=== PATIENT | female | born 1955 | race Two or more races ===

== ENCOUNTER → 2018-11-21 | Outpatient (CLI) | payer OTHER ==
[~2018-11-21] MED LIST: AMLO-145 PO; ATOR40TA21 PO; CYCL10TA7 PO; GABA400C14 PO; HYDR12.58 PO; INSU100V18 SC; INSU100V19 SC; LEVO125T7 PO; LOSA100T3 PO; METF500T PO; OMEP20CA16 PO; SITA100T11 PO
--- NOTE | 2018-11-21 13:45 | CONS ---
Assessment/Plan Assessment/Plan Hospital Course (Demo Recall) 63-year-old female with multiple medical problems including insulin-dependent diabetes presents with bilateral knee pain and lumbar radiculopathy. She has fairly severe osteoarthritis of bilateral knees slightly worse on the right than the left. She has a varus deformity. Her clinical picture is complicated by her severe lumbar radiculopathy as well as possible symptoms of neurogenic claudication or vascular claudication. She does describe heaviness and feeling of her legs being cold and painful when she stands and walks for short periods of time. It is unclear at this time how much pain is secondary to the osteoarthritis versus other etiologies. At this time the patient would benefit from a steroid injection which will be used for both diagnostic and therapeutic purposes. Only one knee injection will be given at a time secondary to insulin-dependent diabetes. She will return to clinic for her second injection once her serum glucose returns to her baseline. Plan: Obtain authorization for bilateral knee steroid injections. Follow-up after authorization obtained Consultation Date/Type/Reason Admit Date/Time Date of Consultation: Nov 21, 2018 Reason for Consultation Bilateral knee pain Date/Time of Note DATE: 11/21/18 TIME: 13:19 Hx of Present Illness Is a 63-year-old female with a chief complaint of right and left knee pain. The pain is equal in both knees. The pain began many years ago. No specific injury. The pain has just continued to increase over the years. The patient's pain is in the medial and lateral aspect of the right and left knee. She does have pain radiating from her back down to her feet bilaterally. When she stands or walks for a few minutes her legs feel very heavy, cold, and painful. The knees are always painful even when not weightbearing. The knee pain does wake her up at night. She does have history of back problems. She does have numbness and tingling worse on the right than the left at times. The pain is rated as a 78/10 and is described as throbbing and burning. She has had epidural spine in jections as well as knee steroid injections in the past. The knee steroid injections were at least 1-2 years ago. They did help somewhat. ----- Duration: Years Injury: No Walking tolerance: 1 block Limp: Yes Support: Walker Swelling: Yes Crepitation: Yes Instability: Yes Stairs: Cannot use Physical Therapy: Yes Injections: Knee steroid injections 2 years ago NSAID's: No Prior surgery: No Back pain: Yes Hip pain: No Risk of AVN : no Patient denies fever, chills, shortness of breath, chest pain, nausea/vomiting, constipation, diarrhea, Past Medical History Insulin-dependent diabetes Depression Chronic back pain, with lumbar radiculopathy breast cancer Obstructive sleep apnea Hyperlipidemia Hypothyroidism Osteoarthritis Home Meds Reported Medications Hydrochlorothiazide* (Hydrochlorothiazide*) 12.5 Mg Tablet, 12.5 MG PO DAILY, #30 TAB 12/15/15 Cyclobenzaprine Hcl* (Cyclobenzaprine Hcl*) 10 Mg Tablet, 10 MG PO HS, #90 TAB 12/15/15 Levothyroxine Sodium* (Levothyroxine Sodium*) 125 Mcg Tablet, 125 MCG PO BEFORE BREAKFAST, #30 TAB 12/15/15 Metformin Hcl (Glucophage) 500 Mg Tablet, 500 MG PO DAILY, #30 TAB 12/15/15 Gabapentin* (Gabapentin*) 400 Mg Capsule, 400 MG PO TID, #90 CAP 12/15/15 Sitagliptin* (Januvia*) 100 Mg Tablet, 100 MG PO DAILY, TAB 02/10/14 Insulin Lispro (Humalog) 100 U/Ml Vial, SC TID 12/17/11 Insulin Glargine,Hum.rec.anlog (Lantus) 100 U/Ml Vial, SC BID 12/17/11 Losartan Potassium* (Cozaar*) 100 Mg Tablet, PO DAILY 12/17/11 Atorvastatin (Lipitor) 40 Mg Tablet, PO DAILY 12/17/11 Amlodipine Besylate* (Amlodipine Besylate*) 5 Mg Tablet, PO DAILY 12/17/11 Omeprazole* (Omeprazole*) 20 Mg Capsule.dr, PO DAILY 12/17/11 Allergies: Uncoded Allergies: PCN (Adverse Reaction, Intermediate, RASH, 12/15/15) Past Surgical History Past Surgical Hx: noncontributory Family History Significant Family History: no pertinent family hx Social History Alcohol Use: other Smoking Status: Unknown if ever smoked Drug Use: none Exam/Review of Systems Exam Vitals Weight: 210 pounds Height: 5 foot 4 inches BMI: 36.0 Temperature: 90.4 Heart Rate: 78 Blood Pressure: 166/79 Respiratory Rate: 16 Exam General: Awake, alert, in no acute distress, pleasant and cooperative Heart: regular rhythm Lungs: breathing comfortably, no tachypnea or dyspnea MUSCULOSKELETAL: Right and Left Knee This is a well developed obese female who is alert, oriented times three and in no apparent distress. Skin is intact over the right and left knee as well as the lower extremity with no abrasions, lacerations, or ulcerations. Observation of the patient's gait reveals a severely antalgic gait with varus thrust. Frontal plane alignment is varus on the right and left knees. There is exquisite pain on palpation of medial and lateral joint line. The patient demonstrates grinding anteriorly with ROM. Range of motion: 5 extension to approximately 70 degrees of flexion on the right and 5-90 degrees on the left. Collateral ligament testing reveals no instability with varus or valgus stress at 0 and 30 degrees of flexion. Negative Mary Anne's and negative posterior drawer. Neurovascularly intact with 5/5 EHL/tibialis anterior/gastroc. Sensation intact to light touch in a sural, saphenous, deep peroneal, superficial peroneal, medial and lateral plantar nerve distribution. Palpable, symmetric dorsalis pedis and posterior tibial pulses in both lower extremities. Hip examination normal Imaging Imaging The patient received a standard set of films today that were personally reviewed. Imaging included a standing bilateral knee AP, PA flexion, merchant views and a dedicated lateral of the affected knee: There is varus alignment of the knees R>L. There is almost complete loss of joint space in the medial and patellofemoral compartment(s) R>L. There is osteophyte formation. There is subchondral sclerosis. There are subchondral cysts. Degenerative changes are most severe in the medial and patellofemoral compartment(s) AARON CARVAJAL MD Nov 21, 2018 13:29
--- NOTE | 2018-11-21 22:37 | RADRPT ---
PROCEDURE: XR Knees. CLINICAL INDICATION: Bilateral knee pain. TECHNIQUE: Total of eight views. Weightbearing frontal, oblique, and lateral views of the both kne es. Patellar views of both knees. COMPARISON: No prior study is available for comparison. FINDINGS: There is no fracture or dislocation. The soft tissues are normal. There are degenerative changes with osteophytes arising from all 3 joint compartment margins bilatera lly. There is bilateral medial joint compartment narrowing with right worse than left. There is no lytic or blastic lesion. There is no radiopaque foreign body. IMPRESSION: 1. Moderate degenerative changes of both knees with right worse than left. 2. Otherwise unremarkable study. RPTAT: QQ .Tavares Gaines MD, MD Date Time Electronically viewed and signed by .Tavares Gaines MD, on 11/21/2018 22:37 .R/
== END | disposition home or self-care (01) ==
LOC: HKI 08:46
PROVIDERS: ATTEND Orthopaedic Surgery Adult Reconstructive Orthopaedic Surgery
DX: M17.0 Bilateral primary osteoarthritis of knee (principal); E11.8 Type 2 diabetes mellitus with unspecified complications; M54.16 Radiculopathy, lumbar region; F32.9 Major depressive disorder, single episode, unspecified; E78.5 Hyperlipidemia, unspecified; E03.9 Hypothyroidism, unspecified; G47.33 Obstructive sleep apnea (adult) (pediatric); Z85.3 Personal history of malignant neoplasm of breast
CPT/HCPCS: 73564; Z7500; G0463

== ENCOUNTER → 2018-12-05 | Outpatient (CLI) | payer OTHER ==
--- NOTE | 2018-12-05 13:57 | CONS ---
Consult Date/Type/Reason Admit Date/Time Initial Consult Date Date/Time of Note DATE: 12/05/18 TIME: 13:55 Subjective 63-year-old female follows up today for right knee steroid injection. She has bilateral end-stage osteoarthritis of the knees. She has authorization for bilateral knee steroid injections. However as previously planned we are only injecting one knee at a time secondary to her uncontrolled diabetes. The second injection will be given once her serum glucose returns to her normal baseline. Denies any changes in her symptoms. Objective Vitals Weight: 210 pounds Height: 5 feet 4 inches Heart Rate: 87 Blood Pressure: 160/72 Exam General: Awake, alert, in no acute distress, pleasant and cooperative Heart: regular rhythm Lungs: breathing comfortably, no tachypnea or dyspnea MUSCULOSKELETAL: Right lower extremity: Skin intact. No erythema. Sensation intact to light touch in a sural, saphenous, deep peroneal, superficial peroneal, medial and lateral plantar nerve distribution. Motor is intact, patient able to dorsiflex and plantarflex ankle and extend and flex great toe. Dorsalis Pedis pulse +2, Brisk capillary refill. Compartments are soft. Calves non-tender to palpation bilaterally. Results/Medications Home Meds Reported Medications Hydrochlorothiazide* (Hydrochlorothiazide*) 12.5 Mg Tablet, 12.5 MG PO DAILY, #30 TAB 12/15/15 Cyclobenzaprine Hcl* (Cyclobenzaprine Hcl*) 10 Mg Tablet, 10 MG PO HS, #90 TAB 12/15/15 Levothyroxine Sodium* (Levothyroxine Sodium*) 125 Mcg Tablet, 125 MCG PO BEFORE BREAKFAST, #30 TAB 12/15/15 Metformin Hcl (Glucophage) 500 Mg Tablet, 500 MG PO DAILY, #30 TAB 12/15/15 Gabapentin* (Gabapentin*) 400 Mg Capsule, 400 MG PO TID, #90 CAP 12/15/15 Sitagliptin* (Januvia*) 100 Mg Tablet, 100 MG PO DAILY, TAB 02/10/14 Insulin Lispro (Humalog) 100 U/Ml Vial, SC TID 12/17/11 Insulin Glargine,Hum.rec.anlog (Lantus) 100 U/Ml Vial, SC BID 12/17/11 Losartan Potassium* (Cozaar*) 100 Mg Tablet, PO DAILY 4/21/12 Atorvastatin (Lipitor) 40 Mg Tablet, PO DAILY 12/17/11 Amlodipine Besylate* (Amlodipine Besylate*) 5 Mg Tablet, PO DAILY 12/17/11 Omeprazole* (Omeprazole*) 20 Mg Capsule., PO DAILY 12/17/11 Assessment/Plan Hospital Course (Demo Recall) 63-year-old female with uncontrolled diabetes and bilateral end-stage osteoarthritis. She is here for staged bilateral knee steroid injections. Her second steroid injection will be given in about 1 week to week and a half when her serum glucose returns back to her baseline. Plan: Right knee steroid injection Low impact activities Ice Follow-up in 1-1.5 weeks for left knee steroid injection Assessment/Plan (Daily) Right knee steroid injection procedure: Risks and benefits of steroid injection reviewed with patient. The risks include infection, failure, pain, swelling, nerve/tendon/ligament damage. The patient verbalized understanding and verbal consent was obtained prior to procedure. The right knee was prepped in a sterile fashion with alcohol and betadine the site of injection was confirmed. Anteromedial approach was used. The skin and capsule was anesthetized with 3mL 1% lidocaine. The right knee was injected with 2mL 1% lidocaine, 2mL 0.25% bupivacaine, 40mg Depo-Medrol. Injection flowed freely. Good hemostasis was achieved and no complications noted. The patient tolerated the procedure well. Limit activity and ice for 24-48 hours AARON CARVAJAL MD Dec 05, 2018 13:57
== END | disposition home or self-care (01) ==
LOC: HKI 11:42
PROVIDERS: ATTEND Orthopaedic Surgery Adult Reconstructive Orthopaedic Surgery
DX: M17.0 Bilateral primary osteoarthritis of knee (principal); E11.9 Type 2 diabetes mellitus without complications; Z79.4 Long term (current) use of insulin; Z79.84 Long term (current) use of oral hypoglycemic drugs
CPT/HCPCS: 20610; Z7500; Z7610; G0463

== ENCOUNTER → 2018-12-13 | Outpatient (CLI) | payer OTHER ==
--- NOTE | 2018-12-13 14:31 | CONS ---
Consult Date/Type/Reason Admit Date/Time Initial Consult Date Date/Time of Note DATE: 12/13/18 TIME: 14:29 Subjective 63-year-old female with significant history for diabetes follows up today in clinic for left knee steroid injection. Just over 1 week ago she had a right knee steroid injection. She states that her knee is at least 50% better. The 2 injections were spread apart secondary to the patient's diabetes. She is pleased with her right knee steroid injection. Objective Vitals Weight: 210 pounds Height: 5 feet 4 inches Temperature: 90.4 Heart Rate: 99 Blood Pressure: 133/74 Respiratory Rate: 12 Exam General: Awake, alert, in no acute distress, pleasant and cooperative Heart: regular rhythm Lungs: breathing comfortably, no tachypnea or dyspnea MUSCULOSKELETAL: Left lower extremity: Skin intact. No erythema. Sensation intact to light touch in a sural, saphenous, deep peroneal, superficial peroneal, medial and lateral plantar nerve distribution. Motor is intact, patient able to dorsiflex and plantarflex ankle and extend and flex great toe. Dorsalis Pedis pulse +2, Brisk capillary refill. Compartments are soft. Calves non-tender to palpation bilaterally. Results/Medications Home Meds Reported Medications Hydrochlorothiazide* (Hydrochlorothiazide*) 12.5 Mg Tablet, 12.5 MG PO DAILY, #30 TAB 12/15/15 Cyclobenzaprine Hcl* (Cyclobenzaprine Hcl*) 10 Mg Tablet, 10 MG PO HS, #90 TAB 12/15/15 Levothyroxine Sodium* (Levothyroxine Sodium*) 125 Mcg Tablet, 125 MCG PO BEFORE BREAKFAST, #30 TAB 12/15/15 Metformin Hcl (Glucophage) 500 Mg Tablet, 500 MG PO DAILY, #30 TAB 12/15/15 Gabapentin* (Gabapentin*) 400 Mg Capsule, 400 MG PO TID, #90 CAP 12/15/15 Sitagliptin* (Januvia*) 100 Mg Tablet, 100 MG PO DAILY, TAB 02/10/14 Insulin Lispro (Humalog) 100 U/Ml Vial, SC TID 12/17/11 Insulin Glargine,Hum.rec.anlog (Lantus) 100 U/Ml Vial, SC BID 12/17/11 Losartan Potassium* (Cozaar*) 100 Mg Tablet, PO DAILY 12/17/11 Atorvastatin (Lipitor) 40 Mg Tablet, PO DAILY 12/17/11 Amlodipine Besylate* (Amlodipine Besylate*) 5 Mg Tablet, PO DAILY 12/17/11 Omeprazole* (Omeprazole*) 20 Mg Capsule.dr, PO DAILY 12/17/11 Assessment/Plan Hospital Course (Demo Recall) 63-year-old female with right worse than left knee osteoarthritis. She has had moderate success with right knee steroid injection. She is here for left knee steroid injection. Plan: Left knee steroid injection Low impact activities Ice Weight loss Follow-up 3 months Assessment/Plan (Daily) Left knee steroid injection procedure: Risks and benefits of steroid injection reviewed with patient. The risks include infection, failure, pain, swelling, nerve/tendon/ligament damage. The patient verbalized understanding and verbal consent was obtained prior to procedure. The left knee was prepped in a sterile fashion with alcohol and betadine the site of injection was confirmed. Anteromedial approach was used. The skin and capsule was anesthetized with 3mL 1% lidocaine. The left knee was injected with 2mL 1% lidocaine, 2mL 0.25% bupivacaine, 40mg Depo-Medrol. Injection flowed freely. Good hemostasis was achieved and no complications noted. The patient tolerated the procedure well. Limit activity and ice for 24-48 hours AARON CARVAJAL MD Dec 13, 2018 14:31
== END | disposition home or self-care (01) ==
LOC: HKI 13:41
PROVIDERS: ATTEND Orthopaedic Surgery Adult Reconstructive Orthopaedic Surgery
DX: M17.12 Unilateral primary osteoarthritis, left knee (principal)
CPT/HCPCS: 20610; Z7500; Z7610; G0463